=== PATIENT | female | born 1990 | race Caucasian/White ===

== ENCOUNTER 2016-05-25 09:07 | Emergency (ER) | payer OTHER ==
[~2016-05-25] VITALS: Ht 154.9 cm; Wt 55.4 kg
[2016-05-25] MEDS ORDERED: SPRINTEC1 EACH PO (09:24)
[2016-05-25 10:13] LABS: HEMATOCRIT 38.8 % (36.0-46.0); MCH 28.9 PG (29.0-34.0); MCV 87.6 FL (83-99); MEAN PLAT.VOLUME 11.4 uM^3 (9.5-12.4); PLATELET COUNT 330 K/uL (156-360); RBC DIS.WIDTH-CV 12.4 % (11.8-14.6); RBC DIS.WIDTH-SD 39.8 % (39-53); RED BLOOD COUNT 4.43 M/uL (3.80-5.20); WHITE BLOOD COUNT 14.4 K/uL (4.1-10.2)
[2016-05-25 10:17] LABS: ADD MIUA? YES; BILIRUBIN NEGATIVE; BLOOD NEGATIVE; COLOR YELLOW ((YELLOW)); GLUCOSE (STRIP) NEGATIVE; KETONES 5; LEUKOCYTES SMALL; NITRITE NEGATIVE; PROTEIN (STRIP) 30; SPECIFIC GRAVITY 1.029 (1.000-1.030); UROBILINOGEN 0.2 MG/DL (0.2-1.0)
[2016-05-25 10:23] LABS: CHLORIDE 105 mEq/L (99-109); POTASSIUM 4.3 mEq/L (3.7-5.4); SODIUM 136 mEq/L (136-147)
[2016-05-25 10:24] LABS: BACTERIA 1+ /HPF; EPITHELIAL CELLS 1+ /HPF; HYALINE CASTS 0-5 /LPF; MUCUS 4+ /LPF; RED BLOOD CELLS 0-5 /HPF (0-5); UCUL ADDED? NO
[2016-05-25 10:26] LABS: GLUCOSE 72 mg/dL (70-99)
[2016-05-25 10:27] LABS: ANION GAP 9 MEQ/L (2-14)
[2016-05-25 10:28] LABS: TOTAL BILIRUBIN 0.5 mg/dL (0.0-1.0)
[2016-05-25 10:29] LABS: ALKALINE PHOSPHATASE 76 IU/L (3-129)
[2016-05-25 10:30] LABS: GFR ESTIMATE (CALCULATED) > 59 mL/min/
[2016-05-25 10:31] LABS: UREA NITROGEN (BUN) 13 mg/dL (9-23)
[2016-05-25 10:33] LABS: LIPASE 28 U/L (1.0-51.0)
[2016-05-25 10:39] LABS: QUANTITATIVE HCG < 4.0 MIU/ML
[2016-05-25] MEDS ORDERED: MACROBID100 MG PO (11:58)
[2016-05-25 12:10] VITALS: BP 125/85
== END 2016-05-25 12:11 | disposition home or self-care (01) ==
LOC: EME 09:07
PROVIDERS: Emergency Medicine
DX: N39.0 Urinary tract infection, site not specified (principal)
CPT/HCPCS: 76856; 80053; 81003; 83690; 84702; 85027; 99281; 99284

== ENCOUNTER 2016-07-03 15:39 | Inpatient (IN) | payer OTHER ==
[~2016-07-03] VITALS: Ht 154.9 cm; Wt 44.7 kg
[~2016-07-03 15:39] MED LIST: MACROBID100 MG PO; SPRINTEC1 EACH PO
[2016-07-03 16:13] LABS: HEMATOCRIT 40.1 % (36.0-46.0); MCH 28.1 PG (29.0-34.0); MCHC 33.7 G/DL (30.0-36.0); MCV 83.4 FL (83-99); MEAN PLAT.VOLUME 8.7 uM^3 (9.5-12.4); NRBC (%) 0.1 /100 WBC (0-0); PLATELET COUNT 529 K/uL (156-360); RBC DIS.WIDTH-CV 12.7 % (11.8-14.6); RBC DIS.WIDTH-SD 38.4 % (39-53); RED BLOOD COUNT 4.81 M/uL (3.80-5.20); WHITE BLOOD COUNT 27.4 K/uL (4.1-10.2)
[2016-07-03 16:22] LABS: CHLORIDE 96 mEq/L (99-109); POTASSIUM 3.1 mEq/L (3.7-5.4); SODIUM 132 mEq/L (136-147)
[2016-07-03 16:25] LABS: GLUCOSE 119 mg/dL (70-99)
[2016-07-03 16:26] LABS: ANION GAP 8 MEQ/L (2-14)
[2016-07-03 16:27] LABS: TOTAL BILIRUBIN 0.4 mg/dL (0.0-1.0)
[2016-07-03 16:28] LABS: ALKALINE PHOSPHATASE 64 IU/L (3-129); GFR ESTIMATE (CALCULATED) > 59 mL/min/
[2016-07-03 16:29] LABS: UREA NITROGEN (BUN) 11 mg/dL (9-23)
[2016-07-03 16:37] LABS: QUANTITATIVE HCG < 4.0 MIU/ML
[2016-07-03 18:18] LABS: C-REACTIVE PROTEIN 60.4 MG/L (0-10)
[2016-07-03 20:50] LABS: ADD MIUA? NO; BILIRUBIN NEGATIVE; BLOOD NEGATIVE; COLOR YELLOW ((YELLOW)); GLUCOSE (STRIP) NEGATIVE; KETONES 5; LEUKOCYTES NEGATIVE; NITRITE NEGATIVE; PROTEIN (STRIP) NEGATIVE; SPECIFIC GRAVITY 1.042 (1.000-1.030); UCUL ADDED? NO; UROBILINOGEN 0.2 MG/DL (0.2-1.0)
[2016-07-03] MEDS ORDERED: MYCOSTATIN 100,60 ML PO (21:29)
[2016-07-03] MEDS ORDERED: ZOFRAN ODT4 MG PO (21:29)
[2016-07-03] MEDS ORDERED: TRAMADOL HCL50 MG PO (21:30)
[2016-07-03] MEDS ORDERED: DELZICOL400 M1 PO (21:30)
[2016-07-03] MEDS ORDERED: ADULT ONE DAI200 MCG PO (21:31)
[2016-07-03] MEDS ORDERED: PREDNISONE5 MG PO ×3 (21:35→21:37)
[2016-07-04 00:16] VITALS: BP 124/68
[2016-07-04 07:28] LABS: ANION GAP 7 MEQ/L (2-14); CHLORIDE 103 MEQ/L (99-109); GFR ESTIMATE (CALCULATED) > 59 mL/min/; GLUCOSE 121 mg/dL (70-99); SAMPLE HEMOLYSIS CHECK 0; SAMPLE ICTERIC CHECK 0; SAMPLE LIPEMIA CHECK 0; SODIUM 136 MEQ/L (136-147); UREA NITROGEN (BUN) 7 mg/dL (9-23)
[2016-07-04 07:35] LABS: POTASSIUM 4.4 MEQ/L (3.7-5.4)
[2016-07-04 08:59] VITALS: BP 110/67
[2016-07-04 10:43] LABS: ABS NEUTROPHIL COUNT 11.6; ACANTHOCYTES 1+; ANISOCYTOSIS 1+; EOSINOPHIL ABS CT 0; HEMATOCRIT 36.1 % (36.0-46.0); INSTRUMENT ABS NEUTROPHIL CT 9.9 K/uL; MCH 27.5 PG (29.0-34.0); MCHC 31.9 G/DL (30.0-36.0); MCV 86.4 FL (83-99); PLATELET CLUMPS PRESENT - PLATELET COUNT APPEARS ADQ.; PLATELET COUNT 407 K/uL (156-360); POIKILOCYTOSIS 1+; RBC DIS.WIDTH-CV 12.9 % (11.8-14.6); RBC DIS.WIDTH-SD 40.3 % (39-53); RED BLOOD COUNT 4.18 M/uL (3.80-5.20)
[2016-07-04 10:44] LABS: WHITE BLOOD COUNT 12.9 K/uL (4.1-10.2)
[2016-07-04 12:50] VITALS: BP 109/69
[2016-07-04 15:20] VITALS: BP 122/77
[2016-07-04 23:33] VITALS: BP 105/66
[2016-07-05 06:50] LABS: HEMATOCRIT 32.2 % (36.0-46.0); MCH 28.2 PG (29.0-34.0); MCHC 33.2 G/DL (30.0-36.0); PLATELET COUNT 383 K/uL (156-360); RBC DIS.WIDTH-SD 39.8 % (39-53); RED BLOOD COUNT 3.79 M/uL (3.80-5.20)
[2016-07-05 07:14] VITALS: BP 100/61
[2016-07-05 07:23] LABS: WHITE BLOOD COUNT 18.7 K/uL (4.1-10.2)
[2016-07-05 11:49] VITALS: BP 104/68
[2016-07-05 15:28] VITALS: BP 121/75
[2016-07-05 19:40] VITALS: BP 110/66
[2016-07-05 23:42] VITALS: BP 115/61
[2016-07-06 03:35] VITALS: BP 108/68
[2016-07-06 07:17] LABS: HEMATOCRIT 31.8 % (36.0-46.0); MCH 27.3 PG (29.0-34.0); MCHC 31.8 G/DL (30.0-36.0); MCV 85.9 FL (83-99); MEAN PLAT.VOLUME 8.7 uM^3 (9.5-12.4); PLATELET COUNT 383 K/uL (156-360); RBC DIS.WIDTH-CV 13.2 % (11.8-14.6); RBC DIS.WIDTH-SD 41.1 % (39-53); WHITE BLOOD COUNT 17.3 K/uL (4.1-10.2)
[2016-07-06 07:39] LABS: ALKALINE PHOSPHATASE 43 IU/L (3-129); ANION GAP 5 MEQ/L (2-14); CHLORIDE 104 MEQ/L (99-109); GFR ESTIMATE (CALCULATED) > 59 mL/min/; GLUCOSE 139 mg/dL (70-99); MAGNESIUM 1.8 mg/dl (1.3-2.7); POTASSIUM 4.1 MEQ/L (3.7-5.4); SAMPLE HEMOLYSIS CHECK 0; SAMPLE ICTERIC CHECK 0; SAMPLE LIPEMIA CHECK 0; SODIUM 135 MEQ/L (136-147); TOTAL BILIRUBIN 0.3 MG/DL (0.0-1.0); UREA NITROGEN (BUN) 9 mg/dL (9-23)
[2016-07-06 07:45] LABS: EOSINOPHIL (%) 0 % (0-5); IMMATURE GRANULOCYTE (%) 2.7 % (0.0-0.7); IMMATURE GRANULOCYTE COUNT 0.5 K/uL; INSTRUMENT ABS NEUTROPHIL CT 14.9 K/uL; LYMPHOCYTE COUNT 1.2 K/uL (1.0-2.8); MONOCYTE COUNT 0.7 K/uL (0-0.8); NEUTROPHIL (%) 86.4 % (45-76); NEUTROPHIL COUNT 14.9 K/uL (1.8-6.4)
[2016-07-06 08:43] VITALS: BP 121/89
[2016-07-06 12:18] VITALS: BP 111/78
[2016-07-06] MEDS ORDERED: DELZICOL400 M1 PO (13:41)
[2016-07-06] MEDS ORDERED: PREDNISONE20 MG PO (13:41)
[2016-07-06] MEDS ORDERED: ENDOCET 5-3251 EACH PO (13:41)
== END 2016-07-06 15:00 | disposition home or self-care (01) | DRG 386 ==
LOC: EME 15:39 → 2EAST 23:14 → EDOF 23:14 → 2EAST 07-04 00:14
PROVIDERS: Hospitalist; Internal Medicine; Internal Medicine Gastroenterology
DX: K51.00 Ulcerative (chronic) pancolitis without complications (principal); E46 Unspecified protein-calorie malnutrition; R65.10 Systemic inflammatory response syndrome (SIRS) of non-infectious origin without acute organ dysfunction; E87.1 Hypo-osmolality and hyponatremia; E87.6 Hypokalemia; R62.7 Adult failure to thrive; D72.829 Elevated white blood cell count, unspecified; D47.3 Essential (hemorrhagic) thrombocythemia; R11.12 Projectile vomiting; E86.0 Dehydration; Z68.1 Body mass index [BMI] 19.9 or less, adult; K29.70 Gastritis, unspecified, without bleeding; F42.8 Other obsessive-compulsive disorder
CPT/HCPCS: 74177; 80048; 80053; 81003; 82272; 83735; 84702; 85025; 85027; 86140; 87177; 87329; 87493; 87506; 99281; 99285; J1644; J2270; J2405; J2930; J3010; J7030; J7512

== ENCOUNTER 2016-07-16 10:59 | Emergency (ER) | payer OTHER ==
[~2016-07-16] VITALS: Ht 154.9 cm; Wt 45.2 kg
[~2016-07-16 10:59] MED LIST changes: +ADULT ONE DAI200 MCG PO; +DELZICOL400 M1 PO; +ENDOCET 5-3251 EACH PO; +MYCOSTATIN 100,60 ML PO; +PREDNISONE20 MG PO; +PREDNISONE5 MG PO; +TRAMADOL HCL50 MG PO; +ZOFRAN ODT4 MG PO
[2016-07-16 13:06] LABS: HEMATOCRIT 40.4 % (36.0-46.0); MCH 27.7 PG (29.0-34.0); MCHC 30.9 G/DL (30.0-36.0); MCV 89.4 FL (83-99); MEAN PLAT.VOLUME 8.7 uM^3 (9.5-12.4); NRBC (%) 0.1 /100 WBC (0-0); RBC DIS.WIDTH-CV 15.2 % (11.8-14.6); RBC DIS.WIDTH-SD 49.6 % (39-53)
[2016-07-16 13:23] LABS: ADD MIUA? YES; BILIRUBIN NEGATIVE; BLOOD NEGATIVE; COLOR AMBER ((YELLOW)); GLUCOSE (STRIP) NEGATIVE; KETONES NEGATIVE; LEUKOCYTES NEGATIVE; NITRITE NEGATIVE; PROTEIN (STRIP) NEGATIVE; SPECIFIC GRAVITY 1.027 (1.000-1.030); UROBILINOGEN 0.2 MG/DL (0.2-1.0)
[2016-07-16 13:27] LABS: PLATELET COUNT 730 K/uL (156-360); RED BLOOD COUNT 4.52 M/uL (3.80-5.20); WHITE BLOOD COUNT 27.8 K/uL (4.1-10.2)
[2016-07-16 13:27] LABS: BACTERIA NONE SEEN /HPF; EPITHELIAL CELLS RARE /HPF; MUCUS 1+ /LPF; RED BLOOD CELLS 0-5 /HPF (0-5); WHITE BLOOD CELLS 0-5 /HPF (0-5)
[2016-07-16 13:44] LABS: QUANTITATIVE HCG < 4.0 MIU/ML
[2016-07-16 13:47] LABS: ALKALINE PHOSPHATASE 86 IU/L (3-129); ANION GAP 11 MEQ/L (2-14); CHLORIDE 97 MEQ/L (99-109); GFR ESTIMATE (CALCULATED) > 59 mL/min/; GLUCOSE 72 mg/dL (70-99); LIPASE 100 U/L (1.0-51.0); POTASSIUM 4.7 MEQ/L (3.7-5.4); SAMPLE HEMOLYSIS CHECK 0; SAMPLE ICTERIC CHECK 0; SAMPLE LIPEMIA CHECK 0; SODIUM 136 MEQ/L (136-147); TOTAL BILIRUBIN 0.4 MG/DL (0.0-1.0); UREA NITROGEN (BUN) 16 mg/dL (9-23)
[2016-07-16] MEDS ORDERED: MIRALAX17 GM PO (17:05)
[2016-07-16] MEDS ORDERED: MORPHINE SULFAT15 MG PO (17:05)
[2016-07-16 17:26] VITALS: BP 117/76
== END 2016-07-16 17:29 | disposition home or self-care (01) ==
LOC: EME 10:59
PROVIDERS: Nurse Practitioner Family
DX: R10.11 Right upper quadrant pain (principal); R10.31 Right lower quadrant pain; D72.829 Elevated white blood cell count, unspecified; T38.0X5A Adverse effect of glucocorticoids and synthetic analogues, initial encounter; E87.8 Other disorders of electrolyte and fluid balance, not elsewhere classified; K59.00 Constipation, unspecified; K76.0 Fatty (change of) liver, not elsewhere classified
CPT/HCPCS: 71020; 74177; 80053; 81003; 83690; 84702; 85027; 99281; 99285; J2270; J2405; J7030

== ENCOUNTER 2016-09-18 18:13 | Emergency (ER) | payer OTHER ==
[~2016-09-18] VITALS: Ht 154.9 cm; Wt 52.4 kg
[~2016-09-18 18:13] MED LIST changes: +MIRALAX17 GM PO; +MORPHINE SULFAT15 MG PO
[2016-09-18 19:03] LABS: HEMATOCRIT 42.2 % (36.0-46.0); MCHC 31.5 G/DL (30.0-36.0); MCV 85.8 FL (83-99); MEAN PLAT.VOLUME 10.1 uM^3 (9.5-12.4); PLATELET COUNT 308 K/uL (156-360); RBC DIS.WIDTH-CV 13.9 % (11.8-14.6); RBC DIS.WIDTH-SD 43.6 % (39-53); RED BLOOD COUNT 4.92 M/uL (3.80-5.20); WHITE BLOOD COUNT 18.1 K/uL (4.1-10.2)
[2016-09-18 19:14] LABS: CHLORIDE 103 mEq/L (99-109); POTASSIUM 4.3 mEq/L (3.7-5.4); SODIUM 141 mEq/L (136-147)
[2016-09-18 19:16] LABS: GLUCOSE 89 mg/dL (70-99)
[2016-09-18 19:18] LABS: ANION GAP 11 MEQ/L (2-14)
[2016-09-18 19:20] LABS: GFR ESTIMATE (CALCULATED) > 59 mL/min/
[2016-09-18 19:21] LABS: UREA NITROGEN (BUN) 15 mg/dL (9-23)
[2016-09-18 19:28] LABS: QUANTITATIVE HCG < 4.0 MIU/ML
[2016-09-18] MEDS ORDERED: XARELTO10 MG PO (19:50)
[2016-09-18] MEDS ORDERED: XARELTO15 MG PO (19:57)
[2016-09-18] MEDS ORDERED: PERCOCET 5/31 TABLET PO (20:14)
[2016-09-18 20:17] VITALS: BP 139/95
== END 2016-09-18 20:18 | disposition home or self-care (01) ==
LOC: EME 18:13
PROVIDERS: Physician Assistant
DX: I82.4Z2 Acute embolism and thrombosis of unspecified deep veins of left distal lower extremity (principal); K51.90 Ulcerative colitis, unspecified, without complications
CPT/HCPCS: 80048; 84702; 85027; 99281; 99283